=== PATIENT | female | born 1955 | race Two or more races ===

== ENCOUNTER 2022-08-13 09:45 | Inpatient (IN) | payer OTHER ==
[2022-08-20] MEDS ORDERED: AMLODIPINE BESYL5 MG (08:45)
[2022-08-20] MEDS ORDERED: SIMVASTATIN40 MG (08:45)
[2022-08-20] MEDS ORDERED: TRAMADOL HCL50 MG (08:45)
[2022-08-20] MEDS ORDERED: RAYOS5 MG (08:45)
[2022-08-20] MEDS ORDERED: FOLIC ACID1 MG (08:45)
[2022-08-20] MEDS ORDERED: MONTELUKAST SOD10 MG (08:45)
[2022-08-20] MEDS ORDERED: LOSARTAN POTAS100 MG (08:45)
[2022-08-20] MEDS ORDERED: OLUMIANT2 MG (08:45)
[2022-08-20] MEDS ORDERED: HYDRALAZINE HCL25 MG (08:45)
[2022-08-20] MEDS ORDERED: ATENOLOL100 MG (08:45)
[2022-08-20] MEDS ORDERED: METHOTREXATE2.5 MG (08:45)
[2022-08-20] MEDS ORDERED: REFRESH OPTIVE1 EAC1 (08:46)
[2022-08-20] MEDS ORDERED: FLONASE16 GM (08:46)
[2022-08-20] MEDS ORDERED: WIXELA 250-501 EACH (08:46)
[2022-08-20] MEDS ORDERED: OPTIMAL D31250 MCG (08:46)
[2022-08-20] MEDS ORDERED: PROVENTIL HFA6.7 GM (08:47)
[2022-08-20] MEDS ORDERED: ELIQUIS2.5 MG PO (19:16)
[2022-08-20] MEDS ORDERED: PERCOCET 5-3251 EACH PO (19:16)
[2022-08-20] MEDS ORDERED: CEFADROXIL500 MG PO (19:16)
== END 2022-08-20 22:47 | disposition home or self-care (01) | DRG 470 ==
LOC: SURH 08-18 05:39 → O/R 08-18 05:39 → SURH 08-18 09:45
PROVIDERS: ADMIT Orthopaedic Surgery; ATTEND Orthopaedic Surgery
PROC: 0SRD0J9 Replacement of Left Knee Joint with Synthetic Substitute, Cemented, Open Approach (ICD-10-PCS; principal; 2022-08-18 14:00)
DX: M17.12 Unilateral primary osteoarthritis, left knee (principal); D62 Acute posthemorrhagic anemia; M06.862 Other specified rheumatoid arthritis, left knee; M81.8 Other osteoporosis without current pathological fracture; M22.12 Recurrent subluxation of patella, left knee; I10 Essential (primary) hypertension; E66.9 Obesity, unspecified